=== PATIENT | male | born 1975 | race Caucasian/White ===

== ENCOUNTER → 2022-10-08 | Outpatient (CLI) | payer OTHER ==
--- NOTE | 2022-10-09 08:43 | MR ---
EXAMINATION TYPE: MR brain wo con DATE OF EXAM: 10/08/2022 COMPARISON: Outside brain MRI November 09, 2020 HISTORY: Epilepsy. Pineal gland cyst. Intracranial arachnoid cyst. TECHNIQUE: Multiplanar, multisequence imaging of the brain and brainstem is performed without IV cont rast. FINDINGS: Diffusion weighted images demonstrate no evidence of a recent infarct or other diffusion abnormality. The ventricular system and cisternal spaces remain normal in size and appearance. The brain volume i s age appropriate. Occasional punctate focus of T2 hyperintensity throughout the white matter bilater ally. Approximately 5-10 scattered small lesions are seen. Largest is a 4 mm posterior left frontal l obe lesion axial image 20. Lesions are nonspecific in appearance and distribution. Midline structures demonstrate normal morphology. Roughly 2 mm incidental pineal gland cyst axial kathleen ge 16 has similar appearance to prior study The craniocervical junction appears within normal limits . Normal vascular flow voids are present. There is persistent area isodense to CSF anterior aspect of the right posterior cranial fossa measuring roughly 3.9 x 2.4 cm felt to reflect arachnoid cyst axia l image 7 with some local mass effect. This has similar appearance to prior exam. There is approximat e 2.0 cm mucous retention cyst or polyp in the left maxillary sinus. Redemonstrated. Nasal septum rem ains deviated to left of midline. IMPRESSION: Approximate 3.9 cm right posterior fossa suspected arachnoid cyst is grossly stable in di rect correlation with outside MRI with local mass effect redemonstrated. Mild nonspecific white matte r changes redemonstrated. Chronic left maxillary sinus disease again seen. Overall no significant baltazar nge from outside MRI study noted.
== END | disposition home or self-care (01) ==
LOC: RADMRIMAIN 15:20
PROVIDERS: ATTEND Psychiatry & Neurology Neurology
DX: G93.0 Cerebral cysts (principal); G40.009 Localization-related (focal) (partial) idiopathic epilepsy and epileptic syndromes with seizures of localized onset, not intractable, without status epilepticus; E34.8 Other specified endocrine disorders; J32.0 Chronic maxillary sinusitis; G93.89 Other specified disorders of brain
CPT/HCPCS: 70551